=== PATIENT | male | born 1995 | race Caucasian/White ===

== ENCOUNTER 2022-09-10 00:12 | Emergency (ER) | payer MEDICAID, OTHER ==
[~2022-09-10] VITALS: Ht 170.2 cm; Wt 68.0 kg
[2022-09-10 00:23] VITALS: TEMP 98
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
[2022-09-10] MEDS ORDERED: ACETAMINOPHEN ES 500 MG TABLET ONE (00:48)
[2022-09-10] MEDS ORDERED: CYCLOBENZAPRINE 10 MG TABLET ONE (00:48)
--- NOTE | 2022-09-10 00:48 | NUR ---
XR AT BEDSIDE
[2022-09-10] MEDS ORDERED: CYCLOBENZAPRINE 10 MG TABLET PO ONE (01:00)
[2022-09-10] MEDS ORDERED: ACETAMINOPHEN ES 500 MG TABLET PO ONE (01:00)
[2022-09-10] MEDS ORDERED: CYCL10TA9 PO (01:59)
[2022-09-10] MEDS ORDERED: ACET-2605 PO (01:59)
[2022-09-10 02:12] VITALS: BP 120/66
== END 2022-09-10 02:20 | disposition home or self-care (01) ==
LOC: ER 00:17
DX: S40.212A Abrasion of left shoulder, initial encounter (principal); M25.551 Pain in right hip; V49.3XXA Car occupant (driver) (passenger) injured in unspecified nontraffic accident, initial encounter; Y93.89 Activity, other specified; Y92.89 Other specified places as the place of occurrence of the external cause; Y99.8 Other external cause status
CPT/HCPCS: 73030-TC; 73502